=== PATIENT | female | born 1990 | race Two or more races ===

== ENCOUNTER 2025-09-28 21:36 | Emergency (ER) | payer BC ==
[~2025-09-28] VITALS: Ht 152.4 cm; Wt 54.0 kg
[2025-09-29 00:28] LABS: BASO % 0.3 % (0.1-1.2); EOS # 0.20 (0.04-0.54); EOS % 3.1 % (0.7-7.0); LYMPH # 0.44 (1.18-3.74); LYMPH % 6.8 % (19.3-53.1); MEAN PLATELET VOLUME 9.90 fl (9.4-12.4); MONO # 0.51 (0.24-0.82); MONO % 7.9 % (4.7-12.5); NEUT # 5.23 (1.56-6.13); NEUT % 81.4 % (34.0-71.1); RED CELL DISTRIBUTION WIDTH 12.3 % (11.6-14.4)
[2025-09-29 00:34] LABS: COVID-19 AG NEGATIVE (NEGATIVE)
[2025-09-29 00:45] LABS: ALT/SGPT 30.0 U/L (12-78); AST/SGOT 19.0 U/L (15-37); BILIRUBIN TOTAL 0.35 mg/dL (0.3-1.2); BUN CREA RATIO 15.0 (7.0-25.0); CREATININE SERUM 0.72 mg/dL (0.55-1.02); GFR 92.72; GLOBULINA 4.1 G/DL (2.4-3.5); GLUCOSE FASTING 109.0 mg/dL (65-100); OSMOLALITY SERUM 272.0 MOSM/KG (275-295)
[2025-09-29] MEDS ORDERED: MUCINEX DM ER1 EAC1 PO (01:15)
[2025-09-29] MEDS ORDERED: OSEL75CA PO (01:15)
[2025-09-29] MEDS ORDERED: ONDANSETRON HCL 2 MG/ML VIAL IM ONE (01:30)
== END 2025-09-29 01:35 | disposition home or self-care (01) ==
LOC: ER 21:37
PROVIDERS: Physician Assistant Medical
DX: J10.1 Influenza due to other identified influenza virus with other respiratory manifestations (principal); Z20.822 Contact with and (suspected) exposure to COVID-19